=== PATIENT | male | born 2000 ===

== ENCOUNTER 2021-12-26 02:14 | Inpatient (IN) | payer OTHER ==
[~2021-12-26] VITALS: Ht 182.9 cm; Wt 79.0 kg
[2021-12-26 02:58] LABS: BASOPHILS ABSOLUTE AUTO 0.05 K/mm3 (0.00-0.23); BASOPHILS PERCENT AUTO 1 % (0-2); EOSINOPHILS ABSOLUTE AUTO 0.09 K/mm3 (0.00-0.68); EOSINOPHILS PERCENT AUTO 1 % (0-6); Hematocrit 47.1 % (37.0-53.0); Hemoglobin 15.1 g/dL (13.5-17.5); IMMATURE GRAN ABSOLUTE AUTO 0.09 K/mm3 (0.00-0.10); IMMATURE GRAN PERCENT AUTO 1 % (0-1); LYMPHOCYTES ABSOLUTE AUTO 4.21 K/mm3 (0.84-5.20); LYMPHOCYTES PERCENT AUTO 43 % (21-46); MONOCYTES ABSOLUTE AUTO 0.49 K/mm3 (0.16-1.47); MONOCYTES PERCENT AUTO 5 % (4-13); Mean Corpuscular HGB 29.3 pg (26.0-34.0); Mean Corpuscular HGB Conc 32.1 g/dL (31.5-36.5); Mean Corpuscular Volume 91 fL (80-100); Mean Platelet Volume 8.9 fL (9.1-12.4); NEUTROPHILS ABSOLUTE AUTO 4.91 K/mm3 (1.96-9.15); NEUTROPHILS PERCENT AUTO 50 % (41-73); Platelet Count 239 K/mm3 (150-400); RDW Coefficient Variation 12.3 % (11.7-14.2); RDW Standard Deviation 41.9 fL (35.1-46.3); Red Blood Cell Count 5.16 M/mm3 (4.30-5.90); White Blood Cell Count 9.84 K/mm3 (4.00-11.30)
[2021-12-26 03:07] LABS: Albumin, Blood 4.2 g/dL (3.4-5.0); Albumin/Globulin Ratio 1.2 (0.8-1.8); Bilirubin, Total 0.9 mg/dL (0.1-1.0); Bun/Creatinine Ratio 14.3 (12.0-20.0); Calcium, Blood 9.3 mg/dL (8.5-10.1); Creatinine, Blood 1.05 mg/dL (0.60-1.20); Globulin, Blood 3.4 g/dL (2.2-4.0); Potassium, Blood 3.9 mmol/L (3.5-5.5); Total Protein, Blood 7.6 g/dL (6.4-8.2)
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
--- NOTE | 2021-12-26 06:06 | NUR ---
SUMMARY NO ACUTE CHANGES SINCE ADMISSION. PT CONTINUED TO HAVE 8/10 PAIN THAT WAS NOT RESOLVING DESPITE REPOSITIONING. PAIN REMAINS ON HIS L SIDE AND MID BACK. NO VISIBLE BRUISING. PT MEDICATED PER EMAR, REPORTS PAIN IS NOW 2/10. VS REMAIN STABLE. PARTNER AT BEDSIDE. WILL REPORT TO ONCOMING RN.
[2021-12-26 06:14] LABS: Influenza A, PCR NEGATIVE (NEGATIVE); Influenza B, PCR NEGATIVE (NEGATIVE); Resp Syncytial Virus, PCR NEGATIVE (NEGATIVE)
[2021-12-26 06:16] LABS: SARS-Cov-2 (COVID-19) PCR, MMC POSITIVE (NEGATIVE)
--- NOTE | 2021-12-26 07:58 | NUR ---
ASSUMED CARE PT LYING IN BED ASLEEP, WOKE EASILY TO VOICE. PT STATES HE HAS PAIN WHEN HE MOVES, BUT IS FINE AT REST. PT IS HESITANT TO TAKE PAIN MEDICATION. DENIES ANY PAST OPIOID ABUSE, SAYS HE JUST DOESN'T LIKE TO TAKE MEDICATON. DISCUSSED IMPORTANCE OF PAIN CONTROL TO ALLOW PT TO BE ABLE TO MOVE AND TAKE DEEP BREATHS TO PREVENT COMPLICATIONS. AFTER THAT PT SAID HE DOES NEED SOME PAIN MEDICATION THEN. DR. SHEPHERD'S RESIDENT CAME BY AND DISCUSSED PLAN WITH PT. ALL QUESTIONS ANSWERED. CONTINUING TO MONITOR.
[2021-12-26 08:22] LABS: BASOPHILS ABSOLUTE AUTO 0.02 K/mm3 (0.00-0.23); BASOPHILS PERCENT AUTO 0 % (0-2); EOSINOPHILS PERCENT AUTO 0 % (0-6); Hematocrit 46.8 % (37.0-53.0); Hemoglobin 14.5 g/dL (13.5-17.5); IMMATURE GRAN ABSOLUTE AUTO 0.09 K/mm3 (0.00-0.10); IMMATURE GRAN PERCENT AUTO 1 % (0-1); LYMPHOCYTES ABSOLUTE AUTO 1.01 K/mm3 (0.84-5.20); LYMPHOCYTES PERCENT AUTO 5 % (21-46); MONOCYTES PERCENT AUTO 5 % (4-13); Mean Corpuscular HGB 28.9 pg (26.0-34.0); Mean Corpuscular Volume 93 fL (80-100); Mean Platelet Volume 9.1 fL (9.1-12.4); NEUTROPHILS ABSOLUTE AUTO 17.68 K/mm3 (1.96-9.15); NEUTROPHILS PERCENT AUTO 90 % (41-73); Platelet Count 196 K/mm3 (150-400); RDW Coefficient Variation 12.5 % (11.7-14.2); Red Blood Cell Count 5.01 M/mm3 (4.30-5.90)
--- NOTE | 2021-12-26 12:25 | NUR ---
REASSESSMENT PT REMAINS ALERT AND ORIENTED. SR IN THE 70S, BP STABLE, NO BRUISING NOTED ON PT'S ABDOMEN OR BACK. PT REMAINS QUITE PAINFUL, LIDOCAINE PATCHES PLACED AND MEDICATED WITH DILAUDID TWICE. REMAINS NPO. PLAN IS FOR PT TO HAVE PROCEDURE WITH DR. ARMIJO THIS AFTERNOON. PT'S PARTNER AT THE BEDSIDE. CONTINUE TO MONITOR.
--- NOTE | 2021-12-26 15:51 | NUR ---
PT BACK FROM [facility] AND [facility], ALERT AND ORIENTED. R GROIN ACCESS SITE C/D/I, SOFT WITH NO HEMATOMA. PT REPORTS PAIN TOLERABLE AT THE MOMENT. EXPLAINED PLAN OF CARE TO PATIENT WELL ACTIVITY RESTRICTIONS REGARDING THE GROIN SITE. PT VERBALIZES UNDERSTANDING.
--- NOTE | 2021-12-26 17:26 | NUR ---
SHIFT SUMMARY PT'S VITALS HAVE BEEN STABLE THROUGHOUT THE DAY. HE WENT TO [facility] AND R GROIN SITE HAS REMAINED C/D/I, SOFT WITHOUT HEMATOMA SINCE HIS RETURN. PT HAS BEEN DRINKING WATER WITH ASSISTANCE AND DENIES ANY NAUSEA. ADVANCING DIET TOLERATED, BUT ALSO REMINDED PT OF ACTIVITY RESTRICTIONS. HOB ELEVATED TO 15 DEGREES AND GROIN SITE REMAINS STABLE. PT CONTINUES TO HAVE L SIDE PAIN WITH MOVEMENT. LIDOCAINE PATCHES ON AND MEDICATING WITH PRN MEDS. PT HAS NOT VOIDED TODAY. HE SAYS HE FEELS LIKE HE NEEDS TO VOID, BUT UNSURE IF HE CAN VOID LYING DOWN. OFFERED THE PT THE URINAL, BUT HE SAID HE WOULD WAIT UNTIL HE CAN MOVE MORE.
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
--- NOTE | 2021-12-26 20:15 | NUR ---
PAIN PT MOVED HOB DOWN AND MOVED SELF AROUND IN BED. YELLING OUT IN PAIN TO LEFT SIDE. MED WITH DILAUDID 0.5 MG IV WITH GOOD RESULTS.
--- NOTE | 2021-12-26 22:26 | NUR ---
PAIN 2154 PT CRYING OUT IN PAIN. STATES,"I WOKE UP WITH IT HURTING". INSTRUCTED ON SLOW EASY BREATHING. PT ALSO C/O NAUSEA. 2214 PT MED WITH ZOFRAN FOR NAUSEA. HOB ELEVATED TO PREVENT ASPERATION. PT STATES,"THE BREATHING HAS HELPED THE PAIN IT IS NOW 7/10 WAS 9-10/10". PT MED WITH DILAUDID 0.5 MG. LIDOCAINE PATCHES REMOVED. TALKED WITH PT REGARDING ORAL PAIN MED VS IV PAIN MED AND POSSIBLE DC'ING IV PAIN MED IN AM.
--- NOTE | 2021-12-26 23:53 | NUR ---
REASSESSMENT PT SLEEPING, AWAKENS EASILY. REPORTS PAIN 5/10,"NOT TO BAD RIGHT NOW". MED WITH TYLENOL AND OXYCODONE TO KEEP AHEAD OF PAIN AND TRY NOT TO USE IV PAIN MED. PT ENCOURAGED TO TAKE SLOW DEEP BREATHS IN/OUT WHEN HAVING PAIN. PT STATES,"THE BREATHING DOES REALLY HELP".
--- NOTE | 2021-12-27 04:22 | NUR ---
REASSESSMENT PT MED WITH OXYCODONE FOR 5/10 LEFT RIB PAIN. RIGHT GROIN STABLE. PT ASSISTED TO EDGE OF BED TO VOID. UNABLE TO VOID SITTING UP. STOOD AT BEDSIDE. VOIDED 600ML DARK YELLOW URINE. BACK TO BED. RIGHT GROIN WITH SLIGHT BLEEDING. DRSG CHANGED. SITE SOFT TO PALPATION. FRANCESCO DRSG APPLIED. NO HEMATOMA. PT REQUESTED FOOD. YOGURT AND CRACKERS GIVEN.
[2021-12-27 04:32] LABS: BASOPHILS ABSOLUTE AUTO 0.02 K/mm3 (0.00-0.23); BASOPHILS PERCENT AUTO 0 % (0-2); EOSINOPHILS ABSOLUTE AUTO 0.01 K/mm3 (0.00-0.68); EOSINOPHILS PERCENT AUTO 0 % (0-6); Hematocrit 40.8 % (37.0-53.0); IMMATURE GRAN ABSOLUTE AUTO 0.08 K/mm3 (0.00-0.10); IMMATURE GRAN PERCENT AUTO 1 % (0-1); LYMPHOCYTES ABSOLUTE AUTO 2.04 K/mm3 (0.84-5.20); LYMPHOCYTES PERCENT AUTO 14 % (21-46); MONOCYTES ABSOLUTE AUTO 1.17 K/mm3 (0.16-1.47); MONOCYTES PERCENT AUTO 8 % (4-13); Mean Corpuscular HGB Conc 31.9 g/dL (31.5-36.5); Mean Corpuscular Volume 91 fL (80-100); Mean Platelet Volume 9.2 fL (9.1-12.4); NEUTROPHILS ABSOLUTE AUTO 11.59 K/mm3 (1.96-9.15); NEUTROPHILS PERCENT AUTO 78 % (41-73); Platelet Count 173 K/mm3 (150-400); RDW Coefficient Variation 12.7 % (11.7-14.2); Red Blood Cell Count 4.49 M/mm3 (4.30-5.90); White Blood Cell Count 14.91 K/mm3 (4.00-11.30)
--- NOTE | 2021-12-27 04:37 | NUR ---
PT C/O NAUSEA, MED WITH ZOFRAN. PT EATING SALTINE CRACKERS
[2021-12-27 04:51] LABS: Bun/Creatinine Ratio 14.6 (12.0-20.0); Calcium, Blood 8.6 mg/dL (8.5-10.1); Creatinine, Blood 0.68 mg/dL (0.60-1.20); Potassium, Blood 4.1 mmol/L (3.5-5.5)
--- NOTE | 2021-12-27 05:13 | NUR ---
PT SITTING UP IN BED WATCHING VIDEOS ON HIS PHONE. PT STATES,"I FEEL MUCH BETTER. IT STILL HURTS WHEN I MOVE, BUT IT IS BETTER".
--- NOTE | 2021-12-27 05:47 | NUR ---
SHIFT SUMMARY PT SITTING UP IN BED WATCHING VIDEOS ON HIS PHONE. MED DURING THE NIGHT WITH DILAUDID TWICE, OXYCODONE THREE TIMES AND TYLENOL TWICE. IMPROVED PAIN CONTROL THIS MORNING. PT DANGLED AND STOOD AT BEDSIDE TO VOID. LUNGS REMAIN CLEAR ON ROOMAIR. ENCOURAGED TO TAKE SLOW DEEP BREATHS AND TO USE IS TO PREVENT PNEUMONIA. HEART RATE DOWN INTO 40'S WHILE SLEEPING. WHILE AWAKE HEART RATE 50-60'S. BP STABLE. RIGHT GROIN SITE STABLE. NO HEMATOMA, SOFT TO PALPATION. SMALL AMT OF BLEEDING, DRSG CHANGED. FRANCESCO DRSG APPLIED. PT VOIDING DARK YELLOW URINE. TAKING PO FLUIDS. MED WITH ZOFRAN TWICE DURING THE NIGHT. S/O AT BEDSIDE. NO ACUTE CHANGE. REPORT TO ON COMING NURSE
--- NOTE | 2021-12-27 07:13 | NUR ---
TOOK OVER CARE OF PT AT 0700, PT RESTING ON RA.
--- NOTE | 2021-12-27 18:41 | NUR ---
SHIFT SUMMARY PT A&OX4, VSS/RA, MARAL PO, VOIDING, AMB INDEPENDENTLY, PAIN MANAGED WITH TYLENOL/TORADOL/OXY 5 MG, GF AT BEDSIDE. WILL REPORT TO ONCOMING NOC RN.
--- NOTE | 2021-12-28 04:52 | NUR ---
SHIFT SUMMARY PT A&OX4, PLEASANT AND COOPERATIVE. VSS. MEDICATED ONCE THIS SHIFT WITH TORADOL. INDEPENDENT IN ROOM. SO AT BEDSIDE. TOLERATING PO INTAKE. CALLS APPROPRIATELY, CALL LIGHT WITHIN REACH.
[2021-12-28 05:11] LABS: Hematocrit 38.1 % (37.0-53.0); Hemoglobin 12.5 g/dL (13.5-17.5); Mean Corpuscular HGB 29.6 pg (26.0-34.0); Mean Corpuscular HGB Conc 32.8 g/dL (31.5-36.5); Mean Corpuscular Volume 90 fL (80-100); Mean Platelet Volume 9.3 fL (9.1-12.4); Platelet Count 167 K/mm3 (150-400); RDW Coefficient Variation 12.4 % (11.7-14.2); RDW Standard Deviation 40.8 fL (35.1-46.3); Red Blood Cell Count 4.23 M/mm3 (4.30-5.90)
[2021-12-28] MEDS ORDERED: OXYC5 PO (11:20)
--- NOTE | 2021-12-28 12:30 | NUR ---
DISCHARGE PT LEFT VIA WHEELCHAIR AT APPROX 1230. REPORTS PAIN MANAGED WELL PER EMAR IF HE STAYS UP ON IT. PRESCRIPTION SENT TO [facility] PRIOR TO DISCHARGE. PT HAD CAN PICKED UP BY FAMILY MEMBER BEFORE LEAVING. PT ABLE TO MOVE WELL IN ROOM USING HIS CANE, PAINFUL BUT MOVES WELL. TAKES DEEP BREATHS. IVS REMOVED PRIOR TO DISCHARGE, TOLERATING PO WELL.
== END 2021-12-28 12:33 | disposition home or self-care (01) | DRG 981 ==
LOC: ER 02:14 → ICUW 03:54 → SURS 03:54 → ICUW 04:05 → SURS 12-27 16:08
PROVIDERS: Student in an Organized Health Care Education/Training Program; Surgery; ADMIT Surgery
PROC: 04V43DZ Restriction of Splenic Artery with Intraluminal Device, Percutaneous Approach (ICD-10-PCS; principal; 2021-12-26)
PROC: 8E0ZXY6 Isolation (ICD-10-PCS; 2021-12-26)
DX: S36.116A Major laceration of liver, initial encounter (principal); U07.1 COVID-19; S32.018A Other fracture of first lumbar vertebra, initial encounter for closed fracture; S22.42XA Multiple fractures of ribs, left side, initial encounter for closed fracture; R04.89 Hemorrhage from other sites in respiratory passages; Z90.49 Acquired absence of other specified parts of digestive tract; V49.9XXA Car occupant (driver) (passenger) injured in unspecified traffic accident, initial encounter; Y92.410 Unspecified street and highway as the place of occurrence of the external cause
CPT/HCPCS: 0241U; 36415; 37244; 70450; 71045; 71260; 72125; 74177; 75726; 75774; 76937; 80048; 80053; 83690; 85025; 85027; 86850; 86900; 86901; 90471; 90714; 96374-59; 97116; 97162; 97166; 97530; 97535; 99152; 99153; 99285-25; A9270; C1760; C1769; C1887; C1894; J1170; J1644; J1885; J2250; J2405; J3010; J7030; J7040; J7120; Q9967

== ENCOUNTER 2023-01-28 20:41 | Emergency (ER) | payer OTHER ==
[~2023-01-28] VITALS: Ht 188 cm; Wt 81.7 kg
[~2023-01-28 20:41] MED LIST: OXYC5 PO
[2023-01-28 22:00] LABS: BASOPHILS ABSOLUTE AUTO 0.04 K/mm3 (0.00-0.23); BASOPHILS PERCENT AUTO 1 % (0-2); EOSINOPHILS ABSOLUTE AUTO 0.11 K/mm3 (0.00-0.68); EOSINOPHILS PERCENT AUTO 1 % (0-6); Hematocrit 41.2 % (37.0-53.0); Hemoglobin 13.3 g/dL (13.5-17.5); IMMATURE GRAN ABSOLUTE AUTO 0.02 K/mm3 (0.00-0.10); IMMATURE GRAN PERCENT AUTO 0 % (0-1); LYMPHOCYTES PERCENT AUTO 37 % (21-46); MONOCYTES ABSOLUTE AUTO 0.66 K/mm3 (0.16-1.47); MONOCYTES PERCENT AUTO 8 % (4-13); Mean Corpuscular HGB 28.8 pg (26.0-34.0); Mean Corpuscular HGB Conc 32.3 g/dL (31.5-36.5); Mean Corpuscular Volume 89 fL (80-100); Mean Platelet Volume 8.8 fL (9.1-12.4); NEUTROPHILS ABSOLUTE AUTO 4.71 K/mm3 (1.96-9.15); NEUTROPHILS PERCENT AUTO 54 % (41-73); Platelet Count 222 K/mm3 (150-400); RDW Coefficient Variation 13.1 % (11.7-14.2); RDW Standard Deviation 42.6 fL (35.1-46.3); Red Blood Cell Count 4.62 M/mm3 (4.30-5.90); White Blood Cell Count 8.74 K/mm3 (4.00-11.30)
[2023-01-28 22:19] LABS: Albumin/Globulin Ratio 1.2 (0.8-1.8); Bilirubin, Total 1.6 mg/dL (0.1-1.0); Bun/Creatinine Ratio 14.4 (12.0-20.0); Creatinine, Blood 0.9 mg/dL (0.60-1.20); Globulin, Blood 3.3 g/dL (2.2-4.0); Total Protein, Blood 7.3 g/dL (6.4-8.2)
[2023-01-28] MEDS ORDERED: FAMO20 PO (23:18)
[2023-01-28 23:30] VITALS: BP 115/59
== END 2023-01-28 23:31 | disposition home or self-care (01) ==
LOC: ER 20:41
PROVIDERS: Student in an Organized Health Care Education/Training Program
DX: R10.13 Epigastric pain (principal); Z79.899 Other long term (current) drug therapy
CPT/HCPCS: 71046; 80053; 83690; 85025; 93005; 93010; 99284-25; A9270

== ENCOUNTER 2023-02-12 18:55 | Emergency (ER) | payer OTHER ==
[~2023-02-12] VITALS: Ht 185.4 cm; Wt 77.1 kg
[~2023-02-12 18:55] MED LIST changes: +FAMO20 PO
[2023-02-12 19:13] VITALS: BP 131/72
[2023-02-12] MEDS ORDERED: AMOCLA875 PO (19:34)
== END 2023-02-12 20:27 | disposition home or self-care (01) ==
LOC: ER 18:55
DX: K02.9 Dental caries, unspecified (principal)
CPT/HCPCS: 96372; 99282-25; A9270; J1885